=== PATIENT | male | born 1985 | race American Indian/Alaskan Native ===

== ENCOUNTER 2020-10-18 10:57 | Emergency (ER) | payer SELFPAY ==
--- NOTE | 2020-10-18 11:09 | Emergency Department Report ---
Chief Complaint: Extremity Injury, Upper Stated Complaint: FROSTBITE/FINGER Time Seen by Provider: 10/18/20 11:04 - HPI History of Present Illness: 35-year-old [id number] male patient with history of tobacco use presents to emergency department complaints of nontraumatic pain to his right index finger for 2 weeks. 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 He has not taken any medications for his pain. He has not seen a primary care provider for this problem. The pain is not any worse today. Patient states he came to the emergency department today because "he was trying to wait until his nine days of work were done." No known history of vascular disease. Denies fever, chills, purulent drainage, numbness, paresthesias. Denies other complaints at this time. - ROS Review of Systems: GENERAL: Negative for fever. CARDIOVASCULAR: Negative for chest pain. PULMONARY: Negative for shortness of breath. GASTROINTESTINAL: Negative for abdominal pain. MUSCULOSKELETAL: Positive for joint pain. NEUROLOGICAL: Negative for headache. INTEGUMENTARY: Negative for rash. - Exam Vital Signs: See RN note Physical Exam: General: Awake, appropriately interactive, no acute distress. Neck: Supple. Full range of motion intact. Cardiovascular: Normal peripheral perfusion. Pulmonary: No respiratory distress. Patient is speaking normally without use of accessory muscles. Skin: No apparent rashes or lesions. Neurological: No facial asymmetry. Speech is clear. Follows commands. Patient is alert and oriented. Musculoskeletal: Patient reports pain throughout the right index finger without reproducible tenderness. Minimal soft tissue swelling present. No overlying warmth or edema. Active and passive range of motion intact in all directions with and without resistance. Distal neurovascular and motor/sensory function intact. Psych: Cooperative. Appropriate mood and affect. MSE screening note: Focused history and physical exam performed. Due to findings the following was ordered: ED Medical Decision Making - Medical Decision Making Patient presents to the emergency department with complaints of nontraumatic pain to his right index finger for approximately 2-week. Symptoms are unchanged today. Physical exam is unremarkable. He is afebrile, neurovascularly intact, excellent range of motion, well perfused, no signs of infection. There is no clinical indication for further diagnostic work-up on an emergent basis at this time. Patient has been advised to take [id number] analgesics and follow- up with primary care provider for definitive management on an outpatient basis. Multiple referrals provided. Smoking cessation encouraged. Strict return precautions provided. BILLING/CODING: This patient encounter does not represent a certified medical emergency. ED Disposition for MSE Clinical Impression: Pain of finger of right hand Disposition: MED SCREENING EXAM-LEFT Is pt being admited?: No Does the pt Need Aspirin: No Condition: Stable Instructions: Hand Pain Additional Instructions: Take Tylenol every 4 hours and Motrin every 8 hours as needed for pain. Gradually advance physical activity slowly as tolerated. Follow-up with primary care provider for definitive management. See referral information below. Call tomorrow to schedule an appointment. Return to the emergency department immediately for new or worsening symptoms. Referrals: ANTONIETTA SLADE MD [Staff Physician] - 3-5 Days [facility] [place] [Outside] - 3-5 Days [facility] [Outside] - 3-5 Days [facility] [Outside] - 3-5 Days Forms: Work/School Release Form(ED) Time of Disposition: 11:09
== END 2020-10-18 11:37 | disposition left against medical advice (07) ==
LOC: ED 10:57